=== PATIENT | female | born 1935 | race Caucasian/White ===

== ENCOUNTER 2016-11-24 12:10 | Emergency (ER) | payer MEDICARE ==
[~2016-11-24 12:10] MED LIST: ARTIFICIAL TEAR15 M1 OU; ATIVAN-DPS0.5 MG PO; ENTOCORT EC3 MG PO; FOLIC ACID1 MG PO; HCTZ12.5 MG PO; HYDROCODON-ACE1 EAC4 PO; KLOR-CON M2020 MEQ PO; LORAZEPAM1 MG PO; MAALOX DPS30 ML PO; MAGOX 400400 MG PO; METOPROLOL TART25 MG PO; MUCINEX600 MG PO; PRILOSEC DPS20 MG PO; PRISTIQ ER100 MG PO; QUESTRAN PACKET4 GM PO; SEROQUEL200 MG PO; SEROQUEL50 MG PO; SURFAK240 MG PO; SYNTHROID DP0.075 MG PO; TYLENOL EXTRA500 M1 PO; ZOFRAN4 MG PO
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
== END 2016-11-24 13:10 | disposition home or self-care (01) ==
LOC: ER 12:10
DX: M25.531 Pain in right wrist (principal); Y04.8XXA Assault by other bodily force, initial encounter; Y92.129 Unspecified place in nursing home as the place of occurrence of the external cause